=== PATIENT | female | born 1990 ===

== ENCOUNTER 2016-12-19 10:27 | Emergency (ER) | payer MEDICAID, OTHER ==
[2016-12-19 10:37] VITALS: TEMP 100.7
[2016-12-19] MEDS ORDERED: SODIUM CHLORIDE 0.9% 1000ML 1,000 ML IV SCH (11:00)
[2016-12-19 11:08] LABS: BASOPHILS % (AUTO) 1 % (0-3); EOSINOPHILS % (AUTO) 0 % (0-9); HEMATOCRIT 31 % (35-47); NEUTROPHILS % (AUTO) 77.1 % (37-80)
[2016-12-19 11:17] LABS: MEAN CORPUSCULAR VOLUME 76 fL (81-99)
[2016-12-19 11:30] LABS: ALBUMIN 2.7 gm/dl (3.4-5.0); CALCIUM 8.6 mg/dl (8.5-10.1); POTASSIUM 3.4 mMol/L (3.5-5.1); THYROID STIMULATING HORMONE 0.756 uIU/ml (0.358-3.740)
[2016-12-19 11:37] LABS: APPEARANCE,URINE Slightly Cloudy; BILIRUBIN,URINE 1+ (NEGATIVE); GLUCOSE, URINE (UA) NEGATIVE (NEGATIVE); KETONES,URINE TRACE (NEGATIVE); LEUKOCYTE ESTERASE ,URINE 1+ (NEGATIVE); NITRATE,URINE NEGATIVE (NEGATIVE); OCCULT BLOOD,URINE TRACE LYSED (NEG-TRACE); PH,URINE 5.5; UROBILINOGEN,URINE 0.2 (0.2-1.0 EU)
[2016-12-19 11:38] LABS: COLOR,URINE Dark Yellow
[2016-12-19] MEDS ORDERED: SODIUM CHLORIDE 0.9% FLUSH 10 ML SOL IV PRN (11:43)
[2016-12-19 12:10] LABS: ICTOTEST,URINE NEGATIVE (NEGATIVE)
[2016-12-19 12:11] LABS: WBC,URINE 30-40 (0-5AV/HPF)
[2016-12-19 12:52] VITALS: BP 104/52; PULSE 94; RESP 20; O2SAT 92
== END 2016-12-19 12:40 | disposition home or self-care (01) | DRG 149 ==
LOC: ED 10:27
DX: R42 Dizziness and giddiness (principal); N39.0 Urinary tract infection, site not specified
CPT/HCPCS: 36415; 80053; 81001; 84443; 85025; 87088; 87804; 93005; 96365; 99284

== ENCOUNTER 2018-10-29 09:39 | Emergency (ER) | payer OTHER ==
[2018-10-29 10:03] VITALS: BP 110/71; O2SAT 97
[2018-10-29 10:21] LABS: BASOPHILS % (AUTO) 1 % (0-3); EOSINOPHILS % (AUTO) 4 % (0-9); HEMATOCRIT 48 % (35-47); HEMOGLOBIN 15.3 gm/dl (12.0-15.5); LYMPHOCYTES % (AUTO) 21.5 % (10-50); MEAN CORPUSCULAR HGB CONC 31.8 gm/dl (32.0-36.0); MEAN CORPUSCULAR VOLUME 91 fL (81-99); MONOCYTES % (AUTO) 8.1 % (0-12); NEUTROPHILS % (AUTO) 65.8 % (37-80)
[2018-10-29 10:36] VITALS: PULSE 72; RESP 17; TEMP 98
[2018-10-29 10:41] LABS: BLOOD UREA NITROGEN 13 mg/dl (7-18); CALCIUM 9.2 mg/dl (8.5-10.1); CARBON DIOXIDE 29.3 mEq/L (21-32); CHLORIDE 106 mMol/L (98-107); CREATININE 0.95 mg/dl (0.60-1.00); GLUCOSE 97 mg/dl (74-106); SODIUM 142 mMol/L (136-145); TROP I < 0.017 ng/ml (0.000-0.056)
== END 2018-10-29 11:08 | disposition home or self-care (01) | DRG 312 ==
LOC: ED 09:39
DX: R55 Syncope and collapse (principal); R42 Dizziness and giddiness; Z98.890 Other specified postprocedural states
CPT/HCPCS: 36415; 80048; 84484; 85025; 93005; 99283

== ENCOUNTER 2019-01-21 18:13 | Emergency (ER) | payer OTHER ==
[2019-01-21 18:39] VITALS: BP 106/75; PULSE 87; RESP 18; TEMP 97.9; O2SAT 98
[2019-01-21] MEDS ORDERED: BACITRACIN 500 U/GM OIN TOP ONE ×2 (18:52→19:09)
[2019-01-21] MEDS ORDERED: TDAP VACCINE 0.5 ML SUS IM ONE ×2 (19:16→19:22)
== END 2019-01-21 19:45 | disposition home or self-care (01) | DRG 605 ==
LOC: ED 18:13
DX: S61.211A Laceration without foreign body of left index finger without damage to nail, initial encounter (principal)
CPT/HCPCS: 90471; 90715; 99282; A9270-GY